=== PATIENT | female | born 1955 | race Caucasian/White ===

== ENCOUNTER 2018-07-24 06:36 | Day surgery (SDC) | payer MEDICAID, OTHER ==
[2018-07-21 15:21] VITALS: Ht 167.6 cm; Wt 62.8 kg
[~2018-07-24] VITALS: Ht 167.6 cm; Wt 62.8 kg
[2018-07-24] VITALS (14 sets, daily range): BP systolic 115–216; BP diastolic 71–126; PULSE 75–108; RESP 15–25
--- NOTE | 2018-07-24 06:01 | HPN ---
Date/Time of Note Date/Time of Note DATE: 07/24/18 TIME: 06:01 Interval H&P Admission Note Pt. seen H&P reviewed: No system changes JAVIER PADRON MD Jul 24, 2018 06:01
--- NOTE | 2018-07-24 06:02 | OPR ---
Date/Time of Note Date/Time of Note DATE: 07/24/18 TIME: 06:01 Operative Report Procedure Date: Jul 24, 2018 Preoperative Diagnosis Right shoulder rotator cuff tear, massive Postoperative Diagnosis 1. Right shoulder massive rotator cuff tear, unrepairable 2. Right shoulder primary arthritis 3. Right shoulder labral tearing and biceps tendon tearing Operation/Procedure Performed 1. Right shoulder extensive debridement of glenohumeral joint with release of biceps tendon Surgeon see signature line Line Fixer Dexter Brady PA-C Second Line Fixer: JORGE OLIVERA Anesthesia Type: general Estimated Blood Loss: minimal Transfusion none Specimen none Grafts/Implants none Complications none Pt Condition Post Procedure: stable Disposition: PACU Procedure Description [employer] SUPERVISOR SURGEON: Dexter Brady PA-C was asked to be present at my request as a result of the complexity associated with this procedure including positioning of the extremities, manipulation of the arthroscope and assistance with time. In my opinion the assistance offered by a surgical oncologist is insufficient and Dexter should be compensated for his time. PROCEDURE IN DETAIL: Following the administration of general anesthesia supplemented with a peripheral nerve block for postoperative pain control, the patient was examined under anesthesia. Examination of the right shoulder revealed severe stiffness with about 90 degrees of forward flexion and abduction. A gentle manipulation was then undertaken and passively she was able to be flexed up to about 150 degrees, abduction 110 degrees, external rotation 80 degrees and internal rotation 20 degrees. Several significant adhesions were noted to be released. The patient was then placed in the left lateral decubitus position. Sterile prep and drape was then undertaken of the left shoulder. Anterior and posterior glenohumeral portals were established. Glenohumeral arthroscopy revealed that the humeral and glenoid articular cartilage had significant grade 2 changes throughout. In addition, the humeral head had diffuse grade 3 and 4 changes within the area anterolaterally over the biceps tendon there was grade 3 in nature. The superior labrum was diffusely torn with extensive fraying that extended into the bicipital groove with severe synovitis. There was evidence of a type IV SLAP lesion. In addition, there was severe synovitis in the bicipital groove. The biceps was subluxed into the bicipital groove. There was significant detachment proximally. The subscapularis was visualized and this was partially torn superiorly. Severe synovitis was noted in that area. Further evaluation of the supraspinatus the a very large complete tear measuring approximately 6-7 cm from anterior to posterior and retracted up to the level of the glenoid. There was severe degenerative change within the remaining tendon footprint as well. It appeared that the avulsion had occurred more medially. There was a significant portion of the footprint that was remaining on the tuberosity with significant sclerotic changes consistent with a chronic tear in that area. Significant synovitis was noted in that space. The biceps was then released in its entirety and extensive debridement of the superior labrum from the 9:00 to the 3 o'clock position was undertaken down to stable tissue. Severe synovitis was also debrided. Tuberosity was then prepared in the tuberosity sclerosis was decorticated with a prominence also being resected. Extensive bursal reactive tissue was then debrided that could be seen from the inside of the joint. The subacromial space was then entered and very severe bursal reactive tissue was noted. There was very thickened coracoacromial ligament no significant acromial prominence was noted. As a result of the massive cuff tear, no acromioplasty was then performed. The AC joint capsule appeared to have no significant inflammation. The rotator cuff edges were then debrided and preparation of the area of the cuff avulsion down to a bleeding bed was undertaken. After attempting a manipulation, no significant rotator cuff tissue was able to be repaired. An extensive debridement was then completed a complete bursectomy and a thorough irrigation. The joint was then thoroughly irrigated, the deep tissues were approximated using 4-0 Monocryl, followed by a sterile dressing. A sling was then applied. The patient was awakened and transported to the recovery room in stable condition. JAVIER PADRON MD Jul 24, 2018 06:02
[~2018-07-24 06:36] MED LIST: DEXAMETHASONE 1 MG TAB PO ONE; GABAPENTIN 300 MG CAP PO ONE; TRANEXAMIC ACID 1GM/100ML(PMX) 100 ML IVPB ONE; VANCOMYCIN 1 GM (PMX) 250 ML IVPB ONE
[2018-07-24] MEDS ORDERED: MULT-761 PO (07:21)
[2018-07-24] MEDS ORDERED: ESCI20TA PO (07:21)
[2018-07-24] MEDS ORDERED: OXYB5TAB22 PO (07:22)
[2018-07-24] MEDS ORDERED: ROPIVACAINE 0.5 % 30 ML VIAL ONE (08:02)
--- NOTE | 2018-07-24 08:29 | PREAC ---
Date/Time of Note Date/Time of Note DATE: 07/24/18 TIME: 08:28 Anesthesia Eval and Record Evaluation Time Pre-Procedure Interview DATE: 07/24/18 TIME: 08:27 Age 62 Sex female NPO: 8 hrs Preoperative diagnosis Rt shoulder rotator cuff tear Planned procedure Rt shoulder Rotator cuff repair Past Medical History Past Medical History: None Musculoskeletal: Osteoarthritis Surgery & Anesthesia Issues No known issue Meds Anticoagulation: No Beta Gaby within 24 hr: No Reason Beta Gaby not given: Pt. not on B-Gaby Reported Medications Oxybutynin Chloride* (Ditropan* XL) 5 Mg Tabsr, 5 MG PO DAILY, TAB.SA 07/24/18 Multivitamin (MULTI VITAMIN DAILY) 1 Each Tablet, 1 TAB PO DAILY, TAB 07/24/18 Escitalopram Oxalate* (Lexapro*) 20 Mg Tablet, 20 MG PO DAILY, #30 TAB 07/24/18 Meds reviewed: Yes Allergies Coded Allergies: amoxicillin (Verified Allergy, Unknown, N/V, 07/24/18) clavulanic acid (Verified Allergy, Unknown, N/V, 07/24/18) erythromycin base (Verified Allergy, Unknown, 07/24/18) Allergies Reviewed: Yes Labs/Studies Labs Reviewed: Reviewed by anesthesiologist test: N/A Studies: ECG Pre-procedure Exam Last vitals Vital Signs Date Temp Pulse Resp B/P (MAP) Pulse Ox O2 O2 Flow FiO2 Time Delivery Rate 07/24/18 96.7 75 18 115/71 98 Room Air 07:39 (86) Airway: Adequate mouth opening, Adequate thyromental dist Mallampati: Mallampati II Teeth: Normal Lung: Normal Heart: Normal ASA Physical Status ASA physical status: 3 Emergency: None Planned Anesthetic General/MAC: LMA Planned Pain Management Single shot nerve block, Parenteral pain med Pre-operative Attestations Prior to commencing anesthesia and surgery, the patient was re-evaluated, there was verification of: *The patient's identity *The results of appropriate recent lab work and preoperative vital signs *The above evaluation not changing prior to induction *Anesthetic plan, risk benefits, alternative and complications discussed with patient/family; questions answered; patient/family understands, accepts and wishes to proceed. CHARLES PHILLIPS MD Jul 24, 2018 08:29
[2018-07-24] MEDS ORDERED: MIDAZOLAM 1 MG/ML 2 ML INJ ONE (08:34)
[2018-07-24] MEDS ORDERED: ROPIVACAINE 0.2% 20 ML VIAL ONE (08:50)
[2018-07-24] MEDS ORDERED: TRANEXAMIC ACID 1GM/100ML(PMX) 100 ML ONE (08:53)
[2018-07-24] MEDS ORDERED: ETOMIDATE 20 MG INJ ONE (09:34)
[2018-07-24] MEDS ORDERED: ROCURONIUM 50 MG INJ ONE (09:34)
[2018-07-24] MEDS ORDERED: LIDOCAINE 2% (SDV) 5 ML INJ ONE (09:34)
[2018-07-24] MEDS ORDERED: GLYCOPYRROLATE 0.4 MG INJ ONE (09:35)
[2018-07-24] MEDS ORDERED: NEOSTIGMINE 10 MG INJ ONE (09:35)
[2018-07-24] MEDS ORDERED: ONDANSETRON 4 MG INJ ONE (09:36)
--- NOTE | 2018-07-24 09:38 | PDOCDIS ---
Discharge Instructions DIAGNOSIS Discharge Diagnosis Massive rotator cuff tear CONDITION [id number] Patient Condition: [id number] Good HOME CARE INSTRUCTIONS: [id number] Diet Instructions: Calws7r Regular ACTIVITY: [id number] Activity Restrictions: [id number] No Restrictions Slowly Increase Activity Keep Limb Elevated [id number] Bathing Restrictions: Cattr1a Shower FOLLOW UP/APPOINTMENTS Follow-up Plan 2 weeks in the office SCHOOL/WORK RELEASE May return to School/Work with: With Restrictions School/Work Release Comment: JAVIER Shepard MD Jul 24, 2018 09:38
[2018-07-24] MEDS ORDERED: MEPERIDINE 25 MG INJ IV PRN (10:00)
[2018-07-24] MEDS ORDERED: ONDANSETRON 4 MG INJ IV PRN (10:00)
[2018-07-24] MEDS ORDERED: LABETALOL HCL 20MG INJ IV PRN (10:00)
[2018-07-24] MEDS ORDERED: FENTAnyl 50 MCG/ML VIAL IV PRN (10:00)
[2018-07-24] MEDS ORDERED: DIPHENHYDRAMINE 50 MG INJ IV PRN (10:00)
[2018-07-24] MEDS ORDERED: HYDROmorphONE 1 MG/5 ML IV SYRINGE IV PRN ×2 (10:00)
--- NOTE | 2018-07-24 10:02 | PAC ---
Date/Time of Note Date/Time of Note DATE: 07/24/18 TIME: 10:01 Post-Anesthesia Notes Post-Anesthesia Note Last documented vital signs Vital Signs Date Temp Pulse Resp B/P (MAP) Pulse Ox O2 O2 Flow FiO2 Time Delivery Rate 07/24/18 96.7 75 18 115/71 98 Room Air 07:39 (86) Activity: WNL Respiratory function: WNL Cardiovascular function: WNL Mental status: Baseline Pain reasonably controlled: Yes Hydration appropriate: Yes Nausea/Vomiting absent: Yes Comments BP:112/67, P:88, Spo2:100%, T:98,8 CHARLES PHILLIPS MD Jul 24, 2018 10:02
== END 2018-07-24 12:05 | disposition home or self-care (01) ==
LOC: SDS 06:36
PROVIDERS: ATTEND Orthopaedic Surgery
DX: M75.101 Unspecified rotator cuff tear or rupture of right shoulder, not specified as traumatic (principal); M13.811 Other specified arthritis, right shoulder; S43.491D Other sprain of right shoulder joint, subsequent encounter; S46.211D Strain of muscle, fascia and tendon of other parts of biceps, right arm, subsequent encounter; X58.XXXD Exposure to other specified factors, subsequent encounter
CPT/HCPCS: 29823; 29828; J2250; J2405; J2710; J2795; J3010; J3370